=== PATIENT | male | born 1980 ===

== ENCOUNTER → 2017-12-13 21:18 | Outpatient (REF) | payer OTHER, SELFPAY | LOC: LAB 21:18 | PROVIDERS: Visit Provider Family Medicine Adult Medicine | DX: Z00.00 Encounter for general adult medical examination without abnormal findings (principal) | CPT/HCPCS: 86480; 86592; 87591 ==

== ENCOUNTER → 2017-12-14 06:01 | Outpatient (REF) | payer OTHER, SELFPAY ==
[2017-12-18 13:07] LABS: QuantiFERON TB POSITIVE (Negative)
[2017-12-20 13:43] LABS: Rapid Plasma Reagin NON-REACTIVE
== END ==
LOC: LAB 06:01
PROVIDERS: Visit Provider Family Medicine Adult Medicine
DX: Z00.00 Encounter for general adult medical examination without abnormal findings (principal)
CPT/HCPCS: 86480; 86592; 87591